=== PATIENT | male | born 1955 | race Asian ===

== ENCOUNTER 2019-05-02 16:45 | Inpatient (IN) | payer MEDICARE, MEDICAID ==
[2019-05-02] MEDS ORDERED: Rifaximin 550 MG TAB PO SCH (21:00)
[2019-05-02] MEDS: Spironolactone 25 MG TAB PO SCH (21:13)
[2019-05-03 01:18] VITALS: BMI 23.3
[2019-05-03] MEDS: Glimepiride 2 MG TAB PO SCH ×2 (08:00→17:05)
[2019-05-03] MEDS: Spironolactone 25 MG TAB PO SCH ×2 (09:00→21:21)
[2019-05-03] MEDS: Rifaximin 550 MG TAB PO SCH ×2 (09:00→21:21)
[2019-05-03] MEDS: Furosemide 20 MG TAB PO SCH (09:00)
[2019-05-03] MEDS: Thiamine 100 MG TAB PO SCH (09:00)
[2019-05-03] MEDS: Nadolol 40 MG TAB PO SCH (13:21)
[2019-05-03] MEDS: Sotalol HCl 80 MG TAB PO SCH (13:22)
[2019-05-04] MEDS ORDERED: Ziprasidone 20 MG VIAL ONE (02:15)
[2019-05-04] MEDS ORDERED: Sterile Water 10 ML VIAL FS PRN ×2 (03:37→18:55)
[2019-05-04] MEDS ORDERED: Ziprasidone 20 MG VIAL IM SCH (03:45)
--- NOTE | 2019-05-04 06:49 | HP ---
PRIMARY CARE PHYSICIAN: Unknown. REASON FOR ADMISSION: Skilled rehab post recent hospitalization. HISTORY OF PRESENT ILLNESS AND HOSPITAL COURSE: Mr. Mckinney is a 63-year-old male, presented with altered mental status on 04/25/[address] [facility]. History was taken by a friend named Abhishek Newell who acts as the patient's informant and power of district attorney. Per informant, the patient has been having a hard time dealing with ascites over the past year. They have been to the ER a couple of times for this and has had paracentesis. The last time was in December 2018. Per informant, the patient was noted not only enlargement of the abdomen and yellowish discoloration of the skin, but intermittent confusion. Confusion had worsened after patient's mother and he did not make it to [place] due to issues with passport. 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 He sometimes would walk in or out of the store without wearing his shoes and very confused. Informant schedule an appointment with GI in [place] for this. After seeing GI, the patient was subsequently referred right away to [facility] ER for further evaluation secondary to worsening liver issues. The patient was diagnosed with acute metabolic encephalopathy with cirrhosis, alcohol induced with Korsakoff syndrome. Per discharge summary, the patient did not have any evidence of delirium or alcohol-withdrawal during his hospital stay, but he has heavy confabulation and has some memory difficulties, which is consistent with Korsakoff syndrome. Neurologist was consulted and Dr. Zamora reports there is no any treatment available for this. Because of his ongoing confusion and unsteadiness with his gait, which require ongoing therapy and close supervision, the patient was transferred to [facility] [facility] for possible rehab. On initial evaluation upon admission, the patient was very confused and has evidence of confabulation. He answers some questions with appropriateness, but the patient talks with other things out of the blue and with tangentially. The patient would walk in and out of his bed without using assistive device. At one point, he stayed in the bathroom and locked himself. After reassurance and reorientation, the patient went back to the bed and I was able to talk to him calmly. I had a good conversation with the patient when examined. The patient was very talkative and would talk with factual evidence as per the informant's history. Again, he confabulates. PAST MEDICAL HISTORY AND PAST SURGICAL HISTORY: Cirrhosis, history of chronic alcoholism, history of ascites, status post paracentesis. FAMILY HISTORY: Unable to obtain. Per informant, the patient has a sister from [place] who is coming anytime this May to take care of the patient. SOCIAL HISTORY: 1. Alcohol. Reports heavy drinking for several years. 2. Drugs. Denies. 3. Tobacco, denies. 4. Living situation: The patient is . He reports that his of liver cancer several years ago. MEDICATIONS: 1. Thiamine 100 mg p.o. daily. 2. Spironolactone 25 mg twice daily. 3. Sotalol 80 mg daily. 4. Rifaximin 550 mg b.i.d. 5. Nadolol 20 mg daily. 6. Lactulose 30 mL daily. 7. Glimepiride 4 mg twice daily. 8. Lasix 20 mg daily. REVIEW OF SYSTEMS: Limited secondary to confusion. PHYSICAL EXAMINATION: VITAL SIGNS: Blood pressure 136/68, temperature 96.5, pulse 86, respirations 20 , O2 saturations 97%. GENERAL: The patient is awake, alert, well groomed, well kept, comfortably lying in bed when examined, not in acute distress. HEENT: Normocephalic, atraumatic. Icteric sclerae. No eye discharge. PERRL. Intact EOM. Oral mucosa is moist. No oral lesions. NECK: Supple. No JVD. No bruit. CHEST: Normal excursion. Clear to auscultation bilaterally. CARDIAC: RRR. Normal S1 and S2. No murmurs. ABDOMEN: Mildly distended. Normoactive bowel sounds and nontender. No rebound. No guarding. Negative CVA tenderness bilaterally. EXTREMITIES: No cyanosis. No edema. SKIN: Normal turgor and elasticity. No lesions. No rashes. Positive jaundice , generalized. NEUROLOGIC: Moving all extremities symmetrically and spontaneously nonfocal. Spontaneous speech. Ambulates without assistive device. MUSCULOSKELETAL: Normal tone. Normal strength. No joint effusion. No erythema. PSYCHIATRIC: Oriented to person and place, a little off of date and time. He is talking to self in the room . He is conversant with the examiner with confabulation. LABORATORY STUDIES: Most recent labs, 04/26/2019, WBC 10.4, hemoglobin 9, hematocrit 26.8, platelets 104. 04/25/2019, PT 16.4, INR 1.3. Sodium 132, potassium 4.1, BUN 20, creatinine 0.85, eGFR greater than 90, glucose 269, total bilirubin 4.4, alkaline phosphatase 114, albumin 3.8, AST 27, ALT 27. B12 of 906, folate 10. Urine on 04/24/2019, greater than 1000 glucose. ALLERGIES: NONE. ASSESSMENT: 1. Cirrhosis with ascites. S/P Paracentesis 2x. 2. Acute metabolic encephalopathy/ Alcohol-induced encephalopathy 3. Korsakoff syndrome. 4. Type 2 diabetes. 5. Anemia. 6. Thrombocytopenia. 7. History of chronic alcohol use. 8. Deconditioning. PLAN: 1. The patient is admitted to [facility] for skilled rehab. 2. PT/OT eval and treat. 3. We will continue current medications as per list. 4. Lengthy discussion with the patient's POA Abhishek Reece on the phone upon admission. We discussed the patient's current conditions. We discussed plan of care and disposition. Per POA, the patient does not have any living will, so he agreed that the patient will be full code at this time. DISPOSITION: Possible intermediate placement. Per Mr. Newell, he already started talking to [facility] for this. Once placement is ready to accept , we will transfer any time. Job ID: [id number] MTDD
[2019-05-04] MEDS: Nadolol 40 MG TAB PO SCH (10:20)
[2019-05-04] MEDS: Furosemide 20 MG TAB PO SCH (10:20)
[2019-05-04] MEDS: Spironolactone 25 MG TAB PO SCH ×2 (10:20→20:22)
[2019-05-04] MEDS: Glimepiride 2 MG TAB PO SCH ×2 (10:21→17:16)
[2019-05-04] MEDS: Rifaximin 550 MG TAB PO SCH ×2 (10:21→20:22)
[2019-05-04] MEDS: Thiamine 100 MG TAB PO SCH (10:21)
[2019-05-04] MEDS: Sotalol HCl 80 MG TAB PO SCH (10:21)
[2019-05-04] MEDS ORDERED: Ziprasidone 20 MG VIAL IM PRN (18:55)
[2019-05-04] MEDS: ALPRAZolam 0.25 MG TAB PO PRN (21:03)
[2019-05-05] MEDS: Glimepiride 2 MG TAB PO SCH ×2 (08:25→18:06)
[2019-05-05] MEDS: ALPRAZolam 0.25 MG TAB PO PRN (08:25)
[2019-05-05] MEDS: Nadolol 40 MG TAB PO SCH (08:26)
[2019-05-05] MEDS: Sotalol HCl 80 MG TAB PO SCH (08:26)
[2019-05-05] MEDS: Furosemide 20 MG TAB PO SCH (08:26)
[2019-05-05] MEDS: Thiamine 100 MG TAB PO SCH (08:27)
[2019-05-05] MEDS: Spironolactone 25 MG TAB PO SCH ×2 (08:27→23:34)
[2019-05-05] MEDS: Rifaximin 550 MG TAB PO SCH ×2 (08:27→23:33)
[2019-05-05] MEDS ORDERED: traZODone HCl 50 MG TAB PO PRN (13:26)
[2019-05-05] MEDS ORDERED: Acetaminophen 325 MG TAB PO PRN (13:27)
[2019-05-05] MEDS ORDERED: Ziprasidone 20 MG CAP PO SCH (13:30)
[2019-05-05] MEDS: ALPRAZolam 0.5 MG TAB PO PRN (23:34)
[2019-05-05] MEDS: Ziprasidone 20 MG CAP PO SCH (23:37)
[2019-05-06] MEDS: Glimepiride 2 MG TAB PO SCH ×2 (08:40→17:09)
[2019-05-06] MEDS: Furosemide 20 MG TAB PO SCH (08:40)
[2019-05-06] MEDS: Nadolol 40 MG TAB PO SCH (08:41)
[2019-05-06] MEDS: Sotalol HCl 80 MG TAB PO SCH (08:41)
[2019-05-06] MEDS: Rifaximin 550 MG TAB PO SCH ×2 (08:42→20:34)
[2019-05-06] MEDS: Ziprasidone 20 MG CAP PO SCH ×2 (08:42→20:33)
[2019-05-06] MEDS: Spironolactone 25 MG TAB PO SCH ×2 (08:42→20:34)
[2019-05-06] MEDS: Thiamine 100 MG TAB PO SCH (08:42)
--- NOTE | 2019-05-06 12:07 | ULT ---
COMPLETE ABDOMEN ULTRASOUND INDICATION: Ascites TECHNIQUE: Grayscale, color Doppler and spectral Doppler were obtained of the abdomen. COMPARISON: CT the chest, abdomen and pelvis dated April 08, 2019 FINDINGS: Liver: Portions of the liver obscured by overlying bowel gas. Visualized aspects demonstrate no focal hepatic lesion. There is coarse echotexture to the visualized kidney suspicious for underlying chronic liver disease. Main portal vein: Not assessed Pancreas: Obscured Gallbladder: Contracted and not well seen. No sonographic Neil's sign reported. Common bile duct:5.1 mm. Right kidney: The right kidney measured 11.5 x 4.7 x 4.8 cm. No focal renal lesion or hydronephrosis is evident. Left kidney: The left kidney measured 11.7 x 4.5 x 4.1 cm. No focal renal lesion or hydronephrosis is demonstrated. Aorta and IVC: Aorta was obscured by overlying bowel gas. Visualized aspects of the IVC were within n ormal limits Spleen: 19cm in length. No focal splenic lesion is evident. Free fluid: None. IMPRESSION: 1. Coarse echotexture the liver suspicious for underlying chronic liver disease. 2. Persistent splenomegaly. 3. Contracted gallbladder due to recent by mouth intake 4. Some limitation exam due to overlying bowel gas.
[2019-05-06] MEDS: ALPRAZolam 0.5 MG TAB PO PRN (20:33)
[2019-05-07] MEDS: Rifaximin 550 MG TAB PO SCH ×2 (09:08→20:59)
[2019-05-07] MEDS: Nadolol 40 MG TAB PO SCH (09:09)
[2019-05-07] MEDS: Spironolactone 25 MG TAB PO SCH ×2 (09:11→20:59)
[2019-05-07] MEDS: Thiamine 100 MG TAB PO SCH (09:11)
[2019-05-07] MEDS: Ziprasidone 20 MG CAP PO SCH (09:11)
[2019-05-07] MEDS: Sotalol HCl 80 MG TAB PO SCH (09:12)
[2019-05-07] MEDS: Glimepiride 2 MG TAB PO SCH ×2 (09:12→17:06)
[2019-05-07] MEDS: Furosemide 20 MG TAB PO SCH (09:12)
[2019-05-07] MEDS ORDERED: Dextrose 50% Abboject 50 ML SYRINGE IVP PRN (18:38)
[2019-05-07] MEDS ORDERED: HumaLOG 300 UNITS/3 ML VIAL SC PRN (18:38)
[2019-05-07] MEDS ORDERED: Dextrose 5% in Water 1,000 ML IV PRN (18:38)
[2019-05-07] MEDS: ALPRAZolam 0.5 MG TAB PO PRN (21:00)
[2019-05-08] MEDS: Nadolol 40 MG TAB PO SCH (08:20)
[2019-05-08] MEDS: HumaLOG 300 UNITS/3 ML VIAL SC PRN ×2 (08:20→12:09)
[2019-05-08] MEDS: Glimepiride 2 MG TAB PO SCH (08:21)
[2019-05-08] MEDS: Sotalol HCl 80 MG TAB PO SCH (08:21)
[2019-05-08] MEDS: Spironolactone 25 MG TAB PO SCH (08:21)
[2019-05-08] MEDS: Rifaximin 550 MG TAB PO SCH (08:21)
[2019-05-08] MEDS: Thiamine 100 MG TAB PO SCH (08:27)
[2019-05-08 09:04] VITALS: BP 129/75; TEMP 97
[2019-05-08] MEDS ORDERED: Ziprasidone 20 MG CAP PO SCH (21:00)
--- NOTE | 2019-05-09 14:07 | DIS ---
DATE OF ADMISSION: 05/02/2019 DATE OF DISCHARGE: 05/08/2019 PRIMARY CARE PHYSICIAN: Dr. Regan. NEUROLOGIST: Dr. Zamora. REASON FOR ADMISSION: Skilled Rehab in [facility] after recent hospitalization. DIAGNOSES: 1. Cirrhosis with ascites, requiring previous paracentesis. 2. Acute metabolic encephalopathy/alcohol induced encephalopathy. 3. Korsakoff's syndrome. 4. Type 2 diabetes. 5. Anemia. 6. Thrombocytopenia. 7. Insomnia. 8. Hypotension, drug-induced, improved. 9. History of chronic alcohol use 10.At risk for elopement, needing a secure unit. DISPOSITION: [facility]. CONDITION ON DISCHARGE: Stable. MEDICATIONS: 1. Thiamine 100 mg p.o. daily. 2. Spironolactone 25 mg p.o. twice daily. 3. Sotalol 80 mg p.o. daily. 4. Rifaximin 550 b.i.d. 5. Nadolol 20 mg daily. 6. Lactulose 30 mg daily. 7. Glimepiride 4 mg b.i.d. 8. Geodon 20 mg p.o. at bedtime. 9. Geodon 20 mg IM p.r.n. for severe agitation, psychotic behavior. 10. Trazodone 50 mg p.o. at bedtime,p.r.n. 11. Ativan 0.5 mg p.o. q.6 hours p.r.n. DIET: Regular. ACTIVITY: Ad joaquim. CODE STATUS: Full code. HISTORY OF THE PRESENT ILLNESS AND HOSPITAL COURSE: Mr. Mckinney is a 63-year-old male with history of cirrhosis associated with ascites, requiring previous paracentesis, with jaundice and progressively worsening confusion. He was admitted at [facility] on 04/25/2019 secondary to severe confusion and jaundice. The patient was diagnosed with acute metabolic encephalopathy with cirrhosis, alcohol induced with Korsakoff's syndrome. The patient admits to chronic alcohol use, which was confirmed by informant/YUE Newell. During his recent hospitalization, the patient did not have any evidence of delirium or alcohol withdrawal per report, but he has a heavy confabulation and some memory difficulties, which is consistent with Korsakoff's syndrome. Neurologist was consulted. Dr. Zamora saw the patient and reports that there is no any treatment available for this. Due to the ongoing confusion and unsteadiness with his gait, which requires ongoing therapy and close supervision, the patient was transferred to [facility] on 05/02/2019 for possible rehab. The patient remained very confused and confabulates all the time during his rehab course. The patient was unable to follow instructions with therapy. Both PT and OT were discontinued upon evaluation. There are days that patient remained so confused that he would not eat, he would not take his medications. Patient also becomes aggressive at times. If the patient is able to sleep. The patient was noted to be more awake and alert during daytime and able to take his medications. He would follow instructions, eat and more cooperative. The patient has had Geodon secondary to severe aggressiveness, wanting to leave and fighting with the staff. After receiving a dose of Geodon IM, the patient was switched to Geodon orally and did well with scheduled Geodon 20 b.i.d. He was also started on anxiolytic p.r.n. and trazodone for insomnia. The patient initially did well with above medications. However, his Geodon oral was adjusted down to q.p.m. due to being lethargic during daytime. patient was also stared with Sliding scale insulin due to persistent hyperglycemia. After several visitations and discussions with the patient's power of trademark attorney, YUE Hinds was in agreement that the patient cannot be discharged home with him as a primary japanese professor as he is not available 26/09 at home. PODaya who was in contact with the patient's sister Dipak Fischer who is currently in [place] was in agreement with the POA that patient needs placement requiring a secured unit secondary to wandering behaviors. After YUE had been talking to the [facility], the patient was accepted on 05/08/2019, thus transferred. Prior to discharge, I together with [facility] bolt maker had a meeting with the POA, Mr Newell, who was present in the hospital. He called the patient's sister from [place]. Telephone conference with Dipak Fischer, patient' s next of kin. We discussed the patient's current clinical condition and poor long term care social worker prognosis without treatment. We also discussed advance care planning including the patient's code status. At this point, the patient has no living will and González Newell is the only financial power of trademark attorney, but no medical power of trademark attorney is assigned at this time. The patient's sister who is the next of kin will be coming from [facility] to [place] anytime this month to discuss this further and to complete all the papers. At this point, everybody was in agreement that the patient will be full code until further recommendations when sister comes to [place] The sister was encouraged to ask questions in the presence of the power of trademark attorney, Mr. Newell and sister's questions were answered to her satisfaction. The patient's sister and POA were comfortable to send the patient to [facility] at this point. The plan is to continue all current medications at this time for supportive medical management. VITAL SIGNS: Prior to discharge; blood pressure 129/75, pulse 88, temp 97, respirations 16, O2 sats 98%, weight 145 pounds and 11 ounces, height 5 feet 6 inches. Time spent in examining the patient, coordinating care and counseling 35 minutes. Job ID: [id number] MTDD
--- NOTE | 2019-05-09 23:20 | PQF ---
Horacio Mckinney IMELDA CHAN MD [id number] CLINICAL DOCUMENTATION CLARIFICATION FORM: POST DISCHARGE Addendum to original discharge summary date: 05/08/2019 Late entry note date: 05/10/2019 DATE:05/09/2019 ATTN:ADONAY MASON MD Please exercise your independent, professional judgment in responding to the clarification form. Clinical indicators are provided on the bottom of this form for your review Please check appropriate box(s): kindly clarify the cirrhosis of the liver [/ ] Cirrhosis of the liver is due to alcohol use [ ] Cirrhosis of the liver is not due to alcohol use [ ] Other diagnosis [ ] Unable to determine For continuity of documentation, please document condition throughout progress notes and discharge summary. Thank You. CLINICAL INDICATORS - SIGNS / SYMPTOMS / LABS Alcohol, reports heavy drinking for several years- Documented in H&P on 05/02 by Mckay Valentine MD Cirrhosis with ascites. S/P Paracentesis 2 x - Documented in H&P on 05/02 by Mckay Valentine MD History of chronic alcohol use- Documented in H&P on 05/02 by Mckay Valentine MD Acute metabolic encephalopathy/alcohol-induced encephalopathy- Documented in H& P on 05/02 by Mckay Valentine MD RISKS: Alcohol, reports heavy drinking for several years- Documented in H&P on 05/02 by Mckay Valentine MD History of chronic alcohol use- Documented in H&P on 05/02 by Mckay Valentine MD Acute metabolic encephalopathy/alcohol-induced encephalopathy- Documented in H& P on 05/02 by Mckay Valentine MD TREATMENT: Spironolactone 25 mg twice daily-Documented in H&P on 05/02 by Mckay Valentine MD Lactulose 30 ml daily-Documented in H&P on 05/02 by Mckay Valentine MD SAP Mis Specialist [employer] Winform Viewer (This form is maintained as a part of the permanent medical record) 2014 [employer]. All Rights Reserved [email or web address]
--- NOTE | 2019-05-13 11:29 | PQF ---
Horacio Mckinney IMELDA CHAN MD [id number] CLINICAL DOCUMENTATION CLARIFICATION FORM: POST DISCHARGE Addendum to original discharge summary date: 05/08/2019 Late entry note date: 05/13/2019 DATE:05/13/2019 ATTN:ROSALVA MASON MD Please exercise your independent, professional judgment in responding to the clarification form. Clinical indicators are provided on the bottom of this form for your review Please check appropriate box(s): kindly clarify the diagnosis acute metabolic encephalopathy/alcohol induced encephalopathy [ ] Acute metabolic encephalopathy [ ] Alcohol induced encephalopathy [ / ] Acute metabolic encephalopathy and Alcohol induced encephalopathy [ ] Other diagnosis [ ] Unable to determine For continuity of documentation, please document condition throughout progress notes and discharge summary. Thank You. CLINICAL INDICATORS - SIGNS / SYMPTOMS / LABS Acute metabolic encephalopathy/alcohol induced encephalopathy-Documented in discharge summary on 05/07 by Rosalva Deal MD Cirrhosis of liver due to alcohol use-Documented in Query response on 05/09 Korsakoff's syndrome-Documented in discharge summary on 05/07 by Rosalva Deal MD RISK FACTORS Acute metabolic encephalopathy/alcohol induced encephalopathy-Documented in discharge summary on 05/07 by Rosalva Deal MD Cirrhosis of liver due to alcohol use-Documented in Query response on 05/09 TREATMENTS: Rifaximin 550 bid-Documented in discharge summary on 05/07 by Rosalva Deal MD Spironolactone 25 mg twice daily -Documented in H&P on 05/02 by Rosalva Deal MD Lactulose 30ml daily -Documented in H&P on 05/02 by Rosalva Deal MD Thiamine 100 mg PO-Documented in discharge summary on 05/07 by Rosalva Deal MD Ativan 0.5 mg P.o.q 6 hours P.R.N-Documented in discharge summary on 05/07 by Rosalva Deal MD SAP Thoracic Surgeon [employer] Winform Viewer (This form is maintained as a part of the permanent medical record) 2014 [employer]. All Rights Reserved [email or web address]
== END 2019-05-08 16:04 | DRG 432 ==
LOC: MADMS 16:45
PROVIDERS: ADMIT Family Medicine; ATTEND Family Medicine
DX: K70.31 Alcoholic cirrhosis of liver with ascites (principal); G93.41 Metabolic encephalopathy; F10.188 Alcohol abuse with other alcohol-induced disorder; F04 Amnestic disorder due to known physiological condition; E11.9 Type 2 diabetes mellitus without complications; D69.6 Thrombocytopenia, unspecified; G47.00 Insomnia, unspecified; I95.2 Hypotension due to drugs; T50.995A Adverse effect of other drugs, medicaments and biological substances, initial encounter
CPT/HCPCS: 36415; 36416; 82140; 93975; J3486

== ENCOUNTER 2019-05-09 01:23 | Emergency (ER) | payer MEDICARE, MEDICAID | END 2019-05-09 02:59 | disposition home or self-care (01) | LOC: MADERS 01:23 | DX: F04 Amnestic disorder due to known physiological condition (principal); D64.9 Anemia, unspecified; E11.9 Type 2 diabetes mellitus without complications; K74.60 Unspecified cirrhosis of liver | CPT/HCPCS: 36416; 99285 ==

== ENCOUNTER 2020-04-07 12:12 | Outpatient (CLI) | payer MEDICARE, MEDICAID | END 2020-04-07 12:13 | disposition home or self-care (01) | LOC: MADLAB 12:12 | PROVIDERS: ATTEND Family Medicine | DX: J09.X2 Influenza due to identified novel influenza A virus with other respiratory manifestations (principal) | CPT/HCPCS: 87804 ==

== ENCOUNTER 2020-12-24 18:00 | Emergency (ER) | payer MEDICARE, MEDICAID ==
[~2020-12-24 18:00] MED LIST: Sodium Chloride 0.9% 100 ML BAG ONE
[2020-12-24 18:51] LABS: INR-International Normal Ratio 1.3; PTT 34.9 sec (22.9-36.1); Prothrombin Time 16.5 sec (12.0-14.7)
[2020-12-24 19:00] LABS: ALT (SGPT) 22 U/L (8-55); AST (SGOT) 26 U/L (5-34); Albumin 3.1 g/dL (3.4-4.8); Alkaline Phosphatase 158 U/L (40-110); Anion Gap 12 mmol/L (10-20); BUN (Urea Nitrogen) 39 mg/dL (8.4-25.7); Bilirubin, Total 2.7 mg/dL (0.2-1.2); Calc. Creatinine Clearance 0 mL/min (70-130); Calcium 8.6 mg/dL (7.8-10.44); Carbon Dioxide 21 mmol/L (23-31); Chloride 104 mmol/L (98-107); Globulin 2.8 g/dL (2.4-3.5); Glucose 189 mg/dL (80-115); Potassium 3.9 mmol/L (3.5-5.1); Protein, Total 5.9 g/dL (5.8-8.1); Sodium 133 mmol/L (136-145)
[2020-12-24 19:10] LABS: Anisocytosis MODERATE=16-30 cells (100X) (0-5/hpf); Band 1 % (5-11); Hemoglobin 7.3 g/dL (14.0-18.0); Hypochromia MODERATE=16-30 cells (100X) (0-5/hpf); Lymphocytes 13 % (21-51); MDiff Complete? YES; Mean Corpuscular HGB CONC 32.2 g/dL (32.0-36.0); Mean Corpuscular Hemoglobin 21.1 pg (27.0-31.0); Mean Corpuscular Volume 65.7 fL (78.0-98.0); Mean Platelet Volume 7.5 fL (7.4-10.4); Microcytosis MODERATE=15-30 cells (100X) (0-5/hpf); Monocytes 6 % (0-10); Myelocyte 1 % (0-0); Neutrophil 76 % (42-75); Nucleated RBC 0 % (0); Platelet Count 86 thou/uL (130-400); Platelet Morphology Comment Appears Decreased; RBC Distribution Width 17.2 % (11.5-14.5); Reactive Lymphocytes 3 % (0-10); Red Blood Cell (RBC) Count 3.45 mill/uL (4.70-6.10); Target Cells SLIGHT = 2-5 cells (100X) (0-1/hpf)
[2020-12-24 19:11] LABS: White Blood Cell (WBC) Count 12.7 thou/uL (4.8-10.8)
[2020-12-24] MEDS ORDERED: Pantoprazole 40 MG VIAL ONE (19:41)
== END 2020-12-24 20:27 | disposition short-term general hospital (02) ==
LOC: MADERS 18:00
DX: K92.2 Gastrointestinal hemorrhage, unspecified (principal); K70.30 Alcoholic cirrhosis of liver without ascites; D69.6 Thrombocytopenia, unspecified; E11.9 Type 2 diabetes mellitus without complications; Z79.4 Long term (current) use of insulin; Z79.899 Other long term (current) drug therapy; Z79.84 Long term (current) use of oral hypoglycemic drugs
CPT/HCPCS: 36415; 80053; 85025; 85610; 85730; 86850; 86900; 86901; 96374; 96376; C9113; J3490

== ENCOUNTER 2021-01-31 12:49 | Emergency (ER) | payer MEDICARE, MEDICAID ==
[2021-01-31] MEDS ORDERED: Sodium Chloride 0.9% 100 ML ONE (14:05)
[2021-01-31] MEDS ORDERED: Dextrose 5 % And 0.9 % NaCl 1,000 ML ONE (14:05)
[2021-01-31] MEDS ORDERED: Sodium Chloride 0.9% 250 ML 250 ML ONE ×2 (14:05→16:05)
[2021-01-31] MEDS ORDERED: Cefepime 2 GM VIAL ONE (14:06)
[2021-01-31 14:29] LABS: ALT (SGPT) 31 U/L (8-55); AST (SGOT) 32 U/L (5-34); Albumin 3.4 g/dL (3.4-4.8); Alkaline Phosphatase 193 U/L (40-110); Anion Gap 15 mmol/L (10-20); BUN (Urea Nitrogen) 41 mg/dL (8.4-25.7); CK (CPK) 51 U/L (30-200); Calc. Creatinine Clearance 0 mL/min (70-130); Calcium 8.6 mg/dL (7.8-10.44); Carbon Dioxide 21 mmol/L (23-31); Chloride 99 mmol/L (98-107); Globulin 3.4 g/dL (2.4-3.5); Glucose 98 mg/dL (80-115); Potassium 4.1 mmol/L (3.5-5.1); Protein, Total 6.8 g/dL (5.8-8.1); Sodium 131 mmol/L (136-145)
[2021-01-31 14:53] LABS: Anisocytosis SLIGHT = 6-15 cells (100X) (0-5/hpf); Band 2 % (5-11); Eosinophils 3 % (0-10); Hemoglobin 8.9 g/dL (14.0-18.0); Hypochromia MODERATE=16-30 cells (100X) (0-5/hpf); Lymphocytes 20 % (21-51); MDiff Complete? YES; Mean Corpuscular HGB CONC 31.4 g/dL (32.0-36.0); Mean Corpuscular Hemoglobin 21.1 pg (27.0-31.0); Mean Corpuscular Volume 67.3 fL (78.0-98.0); Mean Platelet Volume 7.7 fL (7.4-10.4); Microcytosis MODERATE=15-30 cells (100X) (0-5/hpf); Monocytes 4 % (0-10); Neutrophil 71 % (42-75); Ovalocytes SLIGHT = 2-5 cells (100X) (0-1/hpf); Platelet Count 157 thou/uL (130-400); Poikilocytosis SLIGHT = 6-15 cells (100X) (0-5/hpf); RBC Distribution Width 18.1 % (11.5-14.5); Red Blood Cell (RBC) Count 4.23 mill/uL (4.70-6.10); Schistocytes MODERATE= 6-15 cells (100X) (0-1/hpf); Target Cells SLIGHT = 2-5 cells (100X) (0-1/hpf); Tear Drops SLIGHT = 2-5 cells (100X) (0-1/hpf)
[2021-01-31 14:55] LABS: White Blood Cell (WBC) Count 19.4 thou/uL (4.8-10.8)
== END 2021-01-31 17:00 | disposition short-term general hospital (02) ==
LOC: MADERS 12:49
DX: T68.XXXA Hypothermia, initial encounter (principal); A41.9 Sepsis, unspecified organism; E11.649 Type 2 diabetes mellitus with hypoglycemia without coma; E11.22 Type 2 diabetes mellitus with diabetic chronic kidney disease; N18.9 Chronic kidney disease, unspecified; D69.6 Thrombocytopenia, unspecified; E51.2 Wernicke's encephalopathy; K74.60 Unspecified cirrhosis of liver; R16.1 Splenomegaly, not elsewhere classified
CPT/HCPCS: 36415; 70450; 71045; 80053; 82550; 83605; 84443; 84484; 85025; 87040; 93005; 96365; 96367; J0692; J3370; J3490; J7042; J7050

== ENCOUNTER 2021-03-20 17:48 | Emergency (ER) | payer MEDICARE, MEDICAID ==
[2021-03-20 18:54] LABS: Anisocytosis SLIGHT = 6-15 cells (100X) (0-5/hpf); Base Excess-Venous -4.2 mmol/L (-2.0 to 3.0); Bicarbonate (HCO3v) 21.7 mmol/L (22.0-28.0); CO2 Tension (PvCO2) 42.8 mmHg (42.0-51.0); Calcium, Ionized 1.22 mmol/L (1.15-1.33); Chloride 91 mmol/L (98-107); Eosinophils 3 % (0-10); Hemoglobin 7.7 g/dL (14.0-18.0); Hemoglobin - Calc 8.3 g/dL (14.0-18.0); Hypochromia MODERATE=16-30 cells (100X) (0-5/hpf); Lymphocytes 21 % (21-51); MDiff Complete? YES; Mean Corpuscular HGB CONC 32.7 g/dL (32.0-36.0); Mean Corpuscular Hemoglobin 21.2 pg (27.0-31.0); Mean Corpuscular Volume 64.9 fL (78.0-98.0); Mean Platelet Volume 8.5 fL (7.4-10.4); Microcytosis MODERATE=15-30 cells (100X) (0-5/hpf); Monocytes 6 % (0-10); Neutrophil 70 % (42-75); Nucleated RBC 14 % (0); Platelet Count 101 thou/uL (130-400); Platelet Morphology Comment Appears Decreased; Poikilocytosis SLIGHT = 6-15 cells (100X) (0-5/hpf); Potassium 5.2 mmol/L (3.5-5.1); RBC Distribution Width 17.4 % (11.5-14.5); Red Blood Cell (RBC) Count 3.62 mill/uL (4.70-6.10); Schistocytes SLIGHT = 2-5 cells (100X) (0-1/hpf); Sodium 123 mmol/L (138-145); Target Cells MODERATE= 6-15 cells (100X) (0-1/hpf); vO2 Saturation-calc 88.2 % (60.0-85.0)
[2021-03-20 18:55] LABS: White Blood Cell (WBC) Count 11.1 thou/uL (4.8-10.8)
[2021-03-20 18:57] LABS: ALT (SGPT) 23 U/L (8-55); AST (SGOT) 35 U/L (5-34); Albumin 3.2 g/dL (3.4-4.8); Alkaline Phosphatase 210 U/L (40-110); Anion Gap 17 mmol/L (10-20); BUN (Urea Nitrogen) 51 mg/dL (8.4-25.7); Bilirubin, Total 4.4 mg/dL (0.2-1.2); Calc. Creatinine Clearance 0 mL/min (70-130); Calcium 8.8 mg/dL (7.8-10.44); Carbon Dioxide 18 mmol/L (23-31); Chloride 92 mmol/L (98-107); Globulin 3.6 g/dL (2.4-3.5); Glucose 567 mg/dL (80-115); Lipase 137 U/L (8-78); Magnesium 2.7 mg/dL (1.6-2.6); Potassium 5.2 mmol/L (3.5-5.1); Protein, Total 6.8 g/dL (5.8-8.1); Sodium 122 mmol/L (136-145)
[2021-03-20] MEDS ORDERED: Insulin Regular 300 UNITS/3 ML VIAL ONE (19:46)
[2021-03-20 21:19] LABS: ALT (SGPT) 20 U/L (8-55); AST (SGOT) 12 U/L (5-34); Alkaline Phosphatase 200 U/L (40-110); Anion Gap 16 mmol/L (10-20); BUN (Urea Nitrogen) 50 mg/dL (8.4-25.7); Bilirubin, Total 4.4 mg/dL (0.2-1.2); Calc. Creatinine Clearance 0 mL/min (70-130); Calcium 8.7 mg/dL (7.8-10.44); Carbon Dioxide 19 mmol/L (23-31); Chloride 94 mmol/L (98-107); Potassium 4.6 mmol/L (3.5-5.1); Sodium 124 mmol/L (136-145)
[2021-03-20 21:36] LABS: Glucose 574 mg/dL (80-115)
== END 2021-03-21 01:15 ==
LOC: MADERS 17:48
DX: E11.65 Type 2 diabetes mellitus with hyperglycemia (principal); E11.22 Type 2 diabetes mellitus with diabetic chronic kidney disease; N18.9 Chronic kidney disease, unspecified; D63.1 Anemia in chronic kidney disease; Z79.4 Long term (current) use of insulin; Z79.899 Other long term (current) drug therapy
CPT/HCPCS: 36415; 36416; 71045; 80053; 82330; 82803; 83690; 83735; 83880; 84484; 85025; 86850; 86900; 86901; 93005; 96374; J1815

== ENCOUNTER 2021-04-07 14:36 | Outpatient (CLI) | payer MEDICARE, MEDICAID | END 2021-04-07 14:37 | disposition home or self-care (01) | LOC: MADRAD 14:36 | PROVIDERS: ATTEND Family Medicine | DX: S32.049A Unspecified fracture of fourth lumbar vertebra, initial encounter for closed fracture (principal); Z87.81 Personal history of (healed) traumatic fracture | CPT/HCPCS: 72100 ==